=== PATIENT | female | born 1995 | race Caucasian/White ===

== ENCOUNTER → 2018-03-17 17:07 | Outpatient (CLI) | payer OTHER, MEDICAID, SELFPAY ==
[2018-03-17 18:41] LABS: Follicle Stimulating Hormone 4.59 mIU/mL; Luteinizing Hormone 9.07 mIU/mL; Prolactin 19.1 ng/mL (3.0-18.6)
[2018-03-21 16:45] LABS: Testosterone Free 7.8 pg/mL (0.1-6.4); Testosterone Total 45 ng/dL (2-45)
== END ==
DX: N91.5 Oligomenorrhea, unspecified (principal)
CPT/HCPCS: 36415; 83001; 83002; 84146; 84402; 84403; 84443

== ENCOUNTER → 2018-04-17 15:03 | Outpatient (CLI) | payer OTHER, MEDICAID, SELFPAY ==
[2018-04-22 17:06] LABS: Progesterone < 0.5 ng/mL
== END ==
DX: N97.0 Female infertility associated with anovulation (principal)
CPT/HCPCS: 36415; 84144